=== PATIENT | male | born 1995 | race African-American/Black ===

== ENCOUNTER 2016-09-18 11:46 | Emergency (ER) | payer SELFPAY ==
[~2016-09-18] VITALS: Ht 170.2 cm; Wt 150.0 kg
[2016-09-18 11:47] VITALS: BP 137/100; PULSE 102; RESP 24; TEMP 99.3; O2SAT 98
--- NOTE | 2016-09-18 11:56 | PD ---
Physical Exam Time Seen by Provider: 11:50 Narrative 21 year old male presents with cough/cold symptoms for 2 days. no n/v/d. VSS Seen at triage desk, awaiting bed placement. Data Data Last Documented VS Vital Signs Date Time Temp Pulse Resp B/P Pulse Ox O2 Delivery O2 Flow Rate FiO2 09/18/16 11:47 99.3 102 24 137/100 98 Room Air [facility] Medical Record Reviewed: Yes Supervised Visit with NICKI: Yes Tyson Watters Sep 18, 2016 11:56
--- NOTE | 2016-09-18 12:51 | PD ---
HPI Chief Complaint: Cold / Flu Symptoms Time Seen by Provider: 12:47 Travel History International Travel<30 days: No Contact w/Intl Traveler<30days: No Traveled to known affect area: No History of Present Illness HPI 21-year-old male presents to the emergency Department with complaint of cough, nasal congestion, chest congestion, fever since yesterday. Reports MAXIMUM TEMPERATURE 101.5. Reports body aches, headache. Denies throat pain, ear pain. Denies chest tightness, chest pain, shortness of breath. Says his chest hurts when he does cough otherwise there is no chest pain or chest tightness. Denies abdominal pain, nausea, vomiting. Took ibuprofen last yesterday for symptoms. Has not taken any other medications or tried any treatments to alleviate symptoms. Denies getting the influenza vaccine this year. History of childhood asthma. Allergies to amoxicillin. No other medical complaints. No other modifying factors or associated signs and symptoms. PFSH Past Medical History Medical History: Denies Significant Hx Past Surgical History Surgical History: No Previous Surgery Social History Alcohol Use: Yes Tobacco Use: Yes Substance Use: Yes Allergies-Medications (Allergen,Severity, Reaction): Coded Allergies: Amoxicillin (Verified Allergy, Severe, 09/18/16) Reported Meds & Prescriptions Reported Meds & Active Scripts Active No Active Prescriptions or Reported Medications Review of Systems Except as stated in HPI: all other systems reviewed are Neg Physical Exam Narrative GENERAL: Well-nourished, well-developed patient, in no acute distress; low- grade fever 99.3. Nontoxic-appearing SKIN: Warm and dry. No rash. HEAD: Atraumatic. Normocephalic. EYES: Pupils equal and round at 3 mm with brisk reaction. No scleral icterus. No injection or drainage. PERRLA. ENT: Mucosa pink and moist. No erythema or exudates. No uvular edema. No uvular , palatal, or tonsillar deviation. Airway patent. EARS: Bilateral pinnae and external canals appear within normal limits. Bilateral tympanic membranes without erythema, dullness or perforation. NECK: Trachea midline. No lymphadenopathy. CARDIOVASCULAR: Regular rate and rhythm. No murmur appreciated. RESPIRATORY: No accessory muscle use. Clear to auscultation. Breath sounds equal bilaterally. GASTROINTESTINAL: Abdomen soft, non-tender, nondistended. Hepatic and splenic margins not palpable. Bowel sounds are active 4 quadrants. MUSCULOSKELETAL: No obvious deformities. No clubbing. No cyanosis. No edema. NEUROLOGICAL: Awake and alert. Oriented 3. No obvious cranial nerve deficits. Motor grossly within normal limits. Normal speech. Moves all extremities. 5/5 strength to all extremities. PSYCHIATRIC: Appropriate mood and affect; insight and judgment normal. Data Data Last Documented VS Vital Signs Date Time Temp Pulse Resp B/P Pulse Ox O2 Delivery O2 Flow Rate FiO2 09/18/16 13:20 99.2 96 20 125/72 97 Room Air Orders Chest, Single Ap (09/18/16 12:46) Influenzae A/B Antigen (09/18/16 12:46) Ibuprofen (Motrin) (09/18/16 13:00) MDM Medical Decision Making Medical Screen Exam Complete: Yes Emergency Medical Condition: Yes Medical Record Reviewed: Yes Differential Diagnosis Influenza, pneumonia, URI, viral illness Narrative Course 21-year-old male with cold/flu symptoms since yesterday. MAXIMUM TEMPERATURE 101.5. Denies sore throat. Denies chest tightness, chest pain, shortness of breath. Patient's lungs are clear and equal throughout. He isn't allergic acute distress without retractions or tachypnea. He does report chest pain only when coughing. Influenza ordered. Chest x-ray ordered. Ibuprofen ordered. 1310: Chest x-ray with no acute findings. 1342: Influenza negative. Discussed viral illness and symptomatic management. Nasonex nasal spray, Tessalon Perles, ibuprofen prescribed for home. Patient verbalizes understanding and agreement with treatment plan. Patient is medically cleared and stable for discharge. Discussed reasons to return to the emergency department. Instructed patient to follow up with primary care provider. Patient agrees with treatment plan. The patients vital signs are stable and the patient is stable for outpatient follow-up and treatment. Patient discharged home, stable and in no acute distress. Diagnosis Primary Impression: Viral illness Referrals: Primary Care Physician Patient Instructions: Cold Symptoms (ED), General Instructions, Safe Use of Cough and Cold Medicines (ED) Departure Forms: School Release, Return to School Date: Sep 19, 2016 Tests/Procedures Additional Instructions: Ibuprofen or Tylenol as instructed and as needed for fever/pain [id number] cough and cold medications as directed and as needed for symptom management Get plenty of sleep/rest Drink plenty of fluids to prevent dehydration; popsicles and Gatorade Use an air humidifier/turn off ceiling fans Follow-up with primary care provider Return immediately to the emergency department with worsening of symptoms Med/Other Pt SpecificInfo: Prescription(s) given Scripts Mometasone Nasal [place] (Nasonex Nasal [place])50 Mcg/Act Naspr2 [place] EACH NARE DAILY PRN (NASAL CONGESTION) #1 BOTTLE Ref 0 Prov:Gia Manuel 09/18/16 Benzonatate (Tessalon Perles)100 Mg [id number] Mg PO TID PRN (COUGH) #20 CAP Ref 0 Prov:Gia Manuel 09/18/16 Ibuprofen 800 Mg [id number] Mg PO Q6HR PRN (PAIN) #30 TAB Ref 0 Prov:Gia Manuel 09/18/16 Disposition: 01 DISCHARGE HOME Condition: Stable Gia Manuel Sep 18, 2016 12:51
[2016-09-18] MEDS ORDERED: IBUPROFEN 800 MG TAB PO ONE (13:00)
--- NOTE | 2016-09-18 13:06 | RADRPT ---
EXAM DATE/TIME: 09/18/2016 13:03 [facility] COMPARISON: No previous studies available for comparison. INDICATIONS : Cough and fever. MEDICAL HISTORY : None. SURGICAL HISTORY : None. ENCOUNTER: Initial ACUITY: 2 days PAIN SCORE: 0/10 LOCATION: Bilateral chest FINDINGS: A single view of the chest demonstrates the lungs to be symmetrically aerated without evidence of mas s, infiltrate or effusion. The cardiomediastinal contours are unremarkable. Osseous structures are intact. CONCLUSION: Normal examination. Derrick Fraser MD on September 18, 2016 at 13:05 Board Certified Radiologist. This report was verified electronically.
[2016-09-18 13:20] VITALS: BP 125/72; PULSE 96; RESP 20; TEMP 99.2; O2SAT 97
[2016-09-18] MEDS ORDERED: BENZ100 PO (13:44)
[2016-09-18] MEDS ORDERED: MOME17I EACH NARE (13:44)
[2016-09-18] MEDS ORDERED: IBUP800T23 PO (13:44)
== END 2016-09-18 13:53 | disposition home or self-care (01) ==
LOC: NEPK 11:46
DX: B34.9 Viral infection, unspecified (principal); R05 Cough; R09.81 Nasal congestion; R50.9 Fever, unspecified; M79.1 Myalgia; R51 Headache; Z72.0 Tobacco use
CPT/HCPCS: 71010; 87804; 99283